=== PATIENT | female | born 2000 | race Caucasian/White ===

== ENCOUNTER 2021-02-10 09:27 | Emergency (ER) | payer OTHER ==
[~2021-02-10] VITALS: Ht 167.6 cm; Wt 59.0 kg
[2021-02-10 09:40] VITALS: BP_SYST 126
[2021-02-10] MEDS ORDERED: IBUPROFEN 600 MG TABLET PO ONE (09:45)
[2021-02-10] MEDS ORDERED: IBUP-1969 PO (10:55)
[2021-02-10 11:05] VITALS: BP_SYST 126
== END 2021-02-10 11:05 | disposition home or self-care (01) ==
LOC: SED 09:27
DX: S70.11XA Contusion of right thigh, initial encounter (principal); S50.311A Abrasion of right elbow, initial encounter; Z88.1 Allergy status to other antibiotic agents; W01.198A Fall on same level from slipping, tripping and stumbling with subsequent striking against other object, initial encounter; Y93.89 Activity, other specified; Y92.89 Other specified places as the place of occurrence of the external cause; Y99.8 Other external cause status
CPT/HCPCS: 72170-TC; 73552; 99284

== ENCOUNTER → 2022-06-08 | Emergency (ER) | payer OTHER ==
[~2022-06-08] VITALS: Ht 167.6 cm; Wt 59.0 kg
[~2022-06-08] MED LIST: IBUP-1969 PO
[2022-06-08 14:22] VITALS: BP_SYST 127
--- NOTE | 2022-06-08 14:27 | NUR ---
BIBS WITH C/C OF WHILE AT WORK STANDING AND TURNING TO WALK AWAY WHEN SHE HIT LEFT SIDE OF HER HEAD INTO A CABINET DOOR. PT NOW REPORTS INCREASING DIZZINESS, NAUSEA, FOGGY MEMORY AND PRESSURE. PT TOOK ADVIL 400MG LAST NIGHT AT 2100.
== END | disposition left against medical advice (07) ==
LOC: SED 14:13
DX: R51.9 Headache, unspecified (principal); R42 Dizziness and giddiness; R11.0 Nausea; Z53.21 Procedure and treatment not carried out due to patient leaving prior to being seen by health care provider